=== PATIENT | male | born 1955 | race Caucasian/White ===

== ENCOUNTER 2018-08-31 09:03 | Inpatient (IN) ==
[2018-08-31] MEDS ORDERED: ENOXAPARIN 100 MG/ML SYRINGE SUBCUT STA (09:52)
[2018-08-31] MEDS ORDERED: DILTIAZEM 50 MG/10 ML VIAL IV STA (09:52)
[2018-08-31] MEDS ORDERED: DILTIAZEM 25 MG/5 ML VIAL IV ONE (09:54)
[2018-08-31 10:01] LABS: Basophils # 0.1 10*3/uL (0.0-0.2); Basophils % 0.5 % (0.0-0.8); Eosinophils # 0.2 10*3/uL (0.0-0.87); Eosinophils % 1.8 % (0.00-10.9); Hematocrit 52.2 VOL% (42.0-52.0); Hemoglobin 16.1 GM/DL (14.0-18.0); Immature Granulocytes % 0.5 %; Immature Granulocytes Absolute 0.05 #; Lymphocytes # 1.6 10*3/uL (1.4-4.0); Lymphocytes % 14.8 % (21.2-54.2); Mean Corpuscular HGB Conc 30.8 GM/DL (32-36); Mean Corpuscular Hemoglobin 26 PG (27-34); Mean Corpuscular Volume 84.6 FL (87-102); Mean Platelet Volume 10.8 FL (9.6-12.0); Monocytes # 0.6 10*3/uL (0.11-0.8); Monocytes % 5.7 % (1.7-12.7); Neutrophils # 8.5 10*3/uL (1.4-7.4); Neutrophils % 76.7 % (38.7-73.9); Platelet Count 193 T/CUMM (130-400); Red Blood Count 6.17 MC/CUMM (3.8-5.5); Red Cell Distribution Width 18.2 % (9.3-17.3)
[2018-08-31] MEDS: dilTIAZem Drip 125 MG/125 ML PREMIX IV SCH (10:06)
[2018-08-31 10:13] LABS: Albumin 3.2 G/DL (3.4-5.0); Bilirubin,Total 0.4 MG/DL (0.2-1.0); Calcium 8.6 MG/DL (8.5-10.1); Osmolality,Calculated 288.4 MOS/KG (273-304); Potassium 4.6 MMOL/L (3.5-5.1); Total Protein 7.7 G/DL (6.4-8.3)
[2018-08-31] MEDS ORDERED: FUROSEMIDE 40 MG/4 ML VIAL IV STA (10:25)
[2018-08-31 10:52] LABS: Platelet Estimate Normal
[2018-08-31] MEDS ORDERED: MAGNESIUM SULF RIDER 4 GM in PREMIX 1 EACH IV PRN (11:00)
[2018-08-31] MEDS ORDERED: MAGNESIUM SULF RIDER 2 GM in PREMIX 1 EACH IV PRN (11:00)
[2018-08-31] MEDS ORDERED: POTASSIUM CHLORIDE RIDER 10 MEQ in PREMIX 1 EACH IV PRN (11:00)
[2018-08-31] MEDS ORDERED: ALBUTEROL 2.5 MG/3 ML NEB RESP TX PRN (11:07)
[2018-08-31] MEDS ORDERED: traZODone 50 MG TABLET PO PRN (11:08)
[2018-08-31] MEDS ORDERED: diphenhydrAMINE CAP 25 MG CAPSULE PO PRN (11:08)
[2018-08-31] MEDS ORDERED: guaiFENesin/DM ER 600-30 MG TABLET PO PRN (11:08)
[2018-08-31] MEDS ORDERED: ACETAMINOPHEN 325 MG TABLET PO PRN (11:08)
[2018-08-31] MEDS ORDERED: MORPHINE 4 MG/1 ML VIAL IV PRN (11:08)
[2018-08-31 11:33] LABS: Risk Ratio 6.44; Thyroid Stimulating Hormone 9.21 uIU/ml (0.358-3.74); VLDL CHOLESTEROL 31.8 MG/DL
[2018-08-31] MEDS ORDERED: DEXTROSE 50% 25 GM/50 ML SYRINGE IV PRN (12:33)
[2018-08-31] MEDS ORDERED: GLUCAGON 1 MG VIAL IM PRN (12:33)
[2018-08-31] MEDS: ALBUTEROL/IPRATROPIUM 3 ML NEB RESP TX SCH ×2 (14:26→19:13)
[2018-08-31 14:50] LABS: Apearance,Urine CLEAR (Clear); Bilirubin,Urine Negative (Negative); Blood, Urine Small mg/dL (Negative); Glucose,Urine (UA) Negative (Negative); Ketones,Urine Negative (Negative); Mucus,Urine Occasional /LPF (Occasional); Nitrite,Urine Negative (Negative); Protein,Urine 30 MG/DL; RBC,Urine 1 /HPF (0-4); Urine Color Colorless (Yellow); Urine Specific Gravity 1.005 (1.001-1.035); Urine Urobilinogen < 2.0 EU/DL (0.2-1.0)
[2018-08-31 14:57] LABS: Barbiturates Screen,Urine Negative (Negative); Benzodiazepines Screen,Urine Negative (Negative); Cannabinoid Screen,Urine Negative (Negative); Opiate Screen,Urine Negative (Negative); Phencyclidine Screen,Urine Negative (Negative)
[2018-08-31] MEDS ORDERED: hydrALAZINE 10 MG TABLET PO SCH (15:00)
[2018-08-31] MEDS ORDERED: methylPREDNISolone SOD SUC 40 MG/1 ML VIAL IV SCH (16:00)
[2018-08-31] MEDS ORDERED: FUROSEMIDE 40 MG/4 ML VIAL IV SCH (16:00)
[2018-08-31] MEDS: hydrALAZINE 25 MG TABLET PO SCH ×2 (17:13→22:01)
[2018-08-31] MEDS ORDERED: METOPROLOL TARTRATE 5 MG/5 ML VIAL IV ONE (17:17)
[2018-08-31] MEDS: INSULIN REGULAR 100 UNIT/ML SUBCUT SCH ×2 (17:45→22:04)
[2018-08-31] MEDS: methylPREDNISolone SOD SUC 40 MG/1 ML VIAL IV SCH (17:46)
[2018-08-31] MEDS ORDERED: CARVEDILOL 12.5 MG TABLET PO SCH (21:00)
[2018-08-31] MEDS: FLUTICASONE/SALMETEROL 250-50 DISKUS 14 DOSE INH SCH (21:55)
[2018-08-31] MEDS: SOTALOL 80 MG TABLET PO SCH (21:56)
[2018-08-31] MEDS: ATORVASTATIN 80 MG TABLET PO SCH (21:57)
[2018-08-31] MEDS: APIXABAN 5 MG TABLET PO SCH (21:57)
[2018-08-31] MEDS: DOCUSATE SODIUM 100 MG CAPSULE PO SCH (22:01)
[2018-09-01] MEDS: ALBUTEROL/IPRATROPIUM 3 ML NEB RESP TX SCH ×4 (00:01→13:20)
[2018-09-01 04:25] LABS: Basophils % 0.2 % (0.0-0.8); Eosinophils % 0.1 % (0.00-10.9); Hemoglobin 14.9 GM/DL (14.0-18.0); Immature Granulocytes % 0.7 %; Immature Granulocytes Absolute 0.07 #; Lymphocytes # 0.8 10*3/uL (1.4-4.0); Lymphocytes % 7.9 % (21.2-54.2); Mean Corpuscular HGB Conc 31.7 GM/DL (32-36); Mean Corpuscular Hemoglobin 26 PG (27-34); Mean Corpuscular Volume 82.7 FL (87-102); Monocytes # 0.2 10*3/uL (0.11-0.8); Monocytes % 2.3 % (1.7-12.7); Neutrophils # 9.2 10*3/uL (1.4-7.4); Neutrophils % 88.8 % (38.7-73.9); Platelet Count 216 T/CUMM (130-400); Red Blood Count 5.68 MC/CUMM (3.8-5.5); Red Cell Distribution Width 17.2 % (9.3-17.3); White Blood Count 10.4 T/CUMM (4-12)
[2018-09-01 04:55] LABS: Bilirubin,Total 0.8 MG/DL (0.2-1.0); Calcium 7.9 MG/DL (8.5-10.1); Osmolality,Calculated 295.7 MOS/KG (273-304); Potassium 4.7 MMOL/L (3.5-5.1); Total Protein 7.5 G/DL (6.4-8.3)
[2018-09-01] MEDS: methylPREDNISolone SOD SUC 40 MG/1 ML VIAL IV SCH ×2 (06:15→17:09)
[2018-09-01] MEDS: THYROID 60 MG TABLET PO SCH (06:45)
[2018-09-01] MEDS ORDERED: LOSARTAN 25 MG TABLET PO SCH (09:00)
[2018-09-01] MEDS ORDERED: LISINOPRIL 2.5 MG TABLET PO SCH (09:00)
[2018-09-01] MEDS: CARVEDILOL 25 MG TABLET PO SCH ×2 (09:07→21:18)
[2018-09-01] MEDS: PANTOPRAZOLE 40 MG TABLET PO SCH (09:07)
[2018-09-01] MEDS: DOCUSATE SODIUM 100 MG CAPSULE PO SCH ×2 (09:07→21:21)
[2018-09-01] MEDS: INSULIN REGULAR 100 UNIT/ML SUBCUT SCH ×4 (09:07→21:27)
[2018-09-01] MEDS: hydrALAZINE 25 MG TABLET PO SCH ×3 (09:07→23:34)
[2018-09-01] MEDS: SOTALOL 80 MG TABLET PO SCH ×2 (09:07→21:26)
[2018-09-01] MEDS: APIXABAN 5 MG TABLET PO SCH ×2 (09:07→21:21)
[2018-09-01] MEDS: dilTIAZem Drip 125 MG/125 ML PREMIX IV SCH (11:20)
[2018-09-01] MEDS: FLUTICASONE/SALMETEROL 250-50 DISKUS 14 DOSE INH SCH ×2 (12:54→23:35)
[2018-09-01] MEDS ORDERED: ONDANSETRON 4 MG/2 ML VIAL IV PRN (13:38)
[2018-09-01] MEDS ORDERED: ALUMINUM/MAGNES/SIMETH MAX STR 30 ML UDCUP PO PRN (13:38)
[2018-09-01] MEDS ORDERED: SODIUM CHLORIDE 0.9% 500 ML IV ONE (15:56)
[2018-09-01] MEDS: SODIUM CHLORIDE 0.9% 1,000 ML IV SCH (16:25)
[2018-09-01] MEDS ORDERED: SODIUM CHLORIDE 0.9% 1,000 ML IV ONE (17:46)
[2018-09-01 18:59] LABS: ABG Base Excess -0.3 MMOL/L (-2.5-2.5); ABG Oxygen Saturation 90.3 % (95-100); ABG PCO2 40.4 MM HG (35-48); ABG PH 7.392 (7.35-7.45); ABG PO2 60.3 MM HG (80-95); ABG TCO2 21.1 MMOL/L (23-27); Allen Test Positive
[2018-09-01 19:22] LABS: Basophils % 0.2 % (0.0-0.8); Hematocrit 45.2 VOL% (42.0-52.0); Hemoglobin 14.2 GM/DL (14.0-18.0); Immature Granulocytes % 0.6 %; Lymphocytes % 5.7 % (21.2-54.2); Mean Corpuscular HGB Conc 31.4 GM/DL (32-36); Mean Corpuscular Hemoglobin 26 PG (27-34); Mean Corpuscular Volume 83.4 FL (87-102); Mean Platelet Volume 10.4 FL (9.6-12.0); Monocytes # 0.4 10*3/uL (0.11-0.8); Monocytes % 2.6 % (1.7-12.7); Neutrophils # 15.1 10*3/uL (1.4-7.4); Neutrophils % 90.9 % (38.7-73.9); Platelet Count 220 T/CUMM (130-400); Red Blood Count 5.42 MC/CUMM (3.8-5.5); White Blood Count 16.6 T/CUMM (4-12)
[2018-09-01 19:45] LABS: Band Neutrophils 1 % (0-10); Lymphocytes 12 % (20-55); Segmented Neutrophils 86 % (50-85); Total Cells Counted 100
[2018-09-01 19:47] LABS: Alanine Aminotransferase 44 U/L (16-61); Albumin 2.9 G/DL (3.4-5.0); Alkaline Phosphatase 62 U/L (45-117); Aspartate Amino Transferase 21 U/L (0-37); Blood Urea Nitrogen 64 MG/DL (7-18); Calcium 7.7 MG/DL (8.5-10.1); Glucose 280 MG/DL (74-106); Potassium 4.9 MMOL/L (3.5-5.1); Sodium 136 MMOL/L (136-145); Troponin I 0.021 NG/ML (0.00-0.045)
[2018-09-01 19:50] LABS: Platelet Estimate Normal; Polychromasia Few
[2018-09-01] MEDS ORDERED: LORazepam 1 MG TABLET PO ONE (21:09)
[2018-09-01] MEDS: OMEGA 3 ACID ETHYL ESTERS 1 GM CAPSULE PO SCH (21:21)
[2018-09-01] MEDS: ATORVASTATIN 80 MG TABLET PO SCH (21:28)
[2018-09-01 22:16] LABS: ABG Base Excess -1.3 MMOL/L (-2.5-2.5); ABG HCO3 23.3 MMOL/L (20-26); ABG Oxygen Saturation 98.8 % (95-100); ABG PCO2 37.2 MM HG (35-48); ABG TCO2 19.6 MMOL/L (23-27); Allen Test Positive; Pt O2 Delivery Device Other
[2018-09-02] MEDS: ALBUTEROL/IPRATROPIUM 3 ML NEB RESP TX SCH ×4 (01:12→19:08)
[2018-09-02 04:46] LABS: Basophils % 0.1 % (0.0-0.8); Hematocrit 43.1 VOL% (42.0-52.0); Hemoglobin 13.6 GM/DL (14.0-18.0); Immature Granulocytes % 0.9 %; Immature Granulocytes Absolute 0.18 #; Lymphocytes # 0.9 10*3/uL (1.4-4.0); Lymphocytes % 4.8 % (21.2-54.2); Mean Corpuscular HGB Conc 31.6 GM/DL (32-36); Mean Corpuscular Hemoglobin 26 PG (27-34); Mean Corpuscular Volume 83.5 FL (87-102); Mean Platelet Volume 11.4 FL (9.6-12.0); Monocytes % 5.1 % (1.7-12.7); Neutrophils # 17.2 10*3/uL (1.4-7.4); Neutrophils % 89.1 % (38.7-73.9); Platelet Count 219 T/CUMM (130-400); Red Blood Count 5.16 MC/CUMM (3.8-5.5); Red Cell Distribution Width 16.9 % (9.3-17.3); White Blood Count 19.3 T/CUMM (4-12)
[2018-09-02 04:57] LABS: Albumin 2.7 G/DL (3.4-5.0); Bilirubin,Total 0.6 MG/DL (0.2-1.0); Calcium 8.1 MG/DL (8.5-10.1); Osmolality,Calculated 300.8 MOS/KG (273-304); Potassium 4.6 MMOL/L (3.5-5.1); Total Protein 6.6 G/DL (6.4-8.3)
[2018-09-02] MEDS: hydrALAZINE 25 MG TABLET PO SCH (05:08)
[2018-09-02] MEDS: methylPREDNISolone SOD SUC 40 MG/1 ML VIAL IV SCH ×2 (05:19→16:46)
[2018-09-02 05:35] LABS: Lymphocytes 2 % (20-55); Platelet Estimate Normal; Segmented Neutrophils 96 % (50-85); Total Cells Counted 100
[2018-09-02] MEDS: cefTRIAXone 1,000 MG in SYRINGE 1 EACH IV SCH (08:19)
[2018-09-02] MEDS: INSULIN REGULAR 100 UNIT/ML SUBCUT SCH ×4 (08:19→21:11)
[2018-09-02] MEDS: APIXABAN 5 MG TABLET PO SCH ×2 (08:20→21:11)
[2018-09-02] MEDS: PANTOPRAZOLE 40 MG TABLET PO SCH (08:20)
[2018-09-02] MEDS: SOTALOL 80 MG TABLET PO SCH (08:20)
[2018-09-02] MEDS: THYROID 60 MG TABLET PO SCH (08:20)
[2018-09-02] MEDS: DOCUSATE SODIUM 100 MG CAPSULE PO SCH ×2 (08:20→21:15)
[2018-09-02] MEDS: CARVEDILOL 25 MG TABLET PO SCH ×2 (08:20→21:11)
[2018-09-02] MEDS: FLUTICASONE/SALMETEROL 250-50 DISKUS 14 DOSE INH SCH ×2 (08:29→22:30)
[2018-09-02] MEDS: SODIUM CHLORIDE 0.9% 1,000 ML IV SCH (11:31)
[2018-09-02] MEDS ORDERED: APIXABAN 5 MG TABLET PO SCH (11:49)
[2018-09-02] MEDS: OMEGA 3 ACID ETHYL ESTERS 1 GM CAPSULE PO SCH (21:10)
[2018-09-02] MEDS: ATORVASTATIN 80 MG TABLET PO SCH (21:11)
[2018-09-03] MEDS: SODIUM CHLORIDE 0.9% 1,000 ML IV SCH ×2 (00:43→15:11)
[2018-09-03] MEDS: ALBUTEROL/IPRATROPIUM 3 ML NEB RESP TX SCH ×4 (00:54→19:15)
[2018-09-03 05:54] LABS: Basophils % 0.1 % (0.0-0.8); Hematocrit 45.2 VOL% (42.0-52.0); Hemoglobin 14.3 GM/DL (14.0-18.0); Immature Granulocytes % 0.9 %; Immature Granulocytes Absolute 0.15 #; Lymphocytes # 0.8 10*3/uL (1.4-4.0); Lymphocytes % 4.6 % (21.2-54.2); Mean Corpuscular HGB Conc 31.6 GM/DL (32-36); Mean Corpuscular Hemoglobin 27 PG (27-34); Mean Corpuscular Volume 83.9 FL (87-102); Mean Platelet Volume 12.1 FL (9.6-12.0); Monocytes % 5.9 % (1.7-12.7); Neutrophils # 14.5 10*3/uL (1.4-7.4); Neutrophils % 88.5 % (38.7-73.9); Platelet Count 241 T/CUMM (130-400); Red Blood Count 5.39 MC/CUMM (3.8-5.5); Red Cell Distribution Width 17.7 % (9.3-17.3); White Blood Count 16.4 T/CUMM (4-12)
[2018-09-03] MEDS: THYROID 60 MG TABLET PO SCH (06:06)
[2018-09-03] MEDS: methylPREDNISolone SOD SUC 40 MG/1 ML VIAL IV SCH ×2 (06:06→17:26)
[2018-09-03 06:11] LABS: Calcium 7.9 MG/DL (8.5-10.1); Osmolality,Calculated 298.4 MOS/KG (273-304); Potassium 4.6 MMOL/L (3.5-5.1)
[2018-09-03 06:44] LABS: Band Neutrophils 1 % (0-10); Lymphocytes 5 % (20-55); Platelet Estimate Normal; Segmented Neutrophils 88 % (50-85); Total Cells Counted 100
[2018-09-03] MEDS: CARVEDILOL 25 MG TABLET PO SCH ×2 (08:48→21:01)
[2018-09-03] MEDS: PANTOPRAZOLE 40 MG TABLET PO SCH (08:48)
[2018-09-03] MEDS: APIXABAN 5 MG TABLET PO SCH ×2 (08:48→21:02)
[2018-09-03] MEDS: INSULIN REGULAR 100 UNIT/ML SUBCUT SCH ×4 (08:49→21:03)
[2018-09-03] MEDS: DOCUSATE SODIUM 100 MG CAPSULE PO SCH ×2 (08:50→21:01)
[2018-09-03] MEDS: cefTRIAXone 1,000 MG in SYRINGE 1 EACH IV SCH (08:50)
[2018-09-03] MEDS: FLUTICASONE/SALMETEROL 250-50 DISKUS 14 DOSE INH SCH ×2 (09:29→21:06)
[2018-09-03] MEDS: OMEGA 3 ACID ETHYL ESTERS 1 GM CAPSULE PO SCH (21:02)
[2018-09-03] MEDS: ATORVASTATIN 80 MG TABLET PO SCH (21:02)
[2018-09-04] MEDS: ALBUTEROL/IPRATROPIUM 3 ML NEB RESP TX SCH ×5 (00:36→19:19)
[2018-09-04] MEDS: SODIUM CHLORIDE 0.9% 1,000 ML IV SCH ×2 (04:00→16:21)
[2018-09-04 04:38] LABS: Basophils % 0.1 % (0.0-0.8); Hematocrit 50.2 VOL% (42.0-52.0); Hemoglobin 14.9 GM/DL (14.0-18.0); Immature Granulocytes % 0.9 %; Immature Granulocytes Absolute 0.11 #; Lymphocytes # 0.6 10*3/uL (1.4-4.0); Lymphocytes % 4.9 % (21.2-54.2); Mean Corpuscular HGB Conc 29.7 GM/DL (32-36); Mean Corpuscular Hemoglobin 27 PG (27-34); Mean Corpuscular Volume 90.1 FL (87-102); Mean Platelet Volume 11.7 FL (9.6-12.0); Monocytes # 0.7 10*3/uL (0.11-0.8); Neutrophils # 10.8 10*3/uL (1.4-7.4); Neutrophils % 88.1 % (38.7-73.9); Platelet Count 193 T/CUMM (130-400); Red Blood Count 5.57 MC/CUMM (3.8-5.5); Red Cell Distribution Width 18.4 % (9.3-17.3); White Blood Count 12.3 T/CUMM (4-12)
[2018-09-04 04:51] LABS: Calcium 7.7 MG/DL (8.5-10.1); Osmolality,Calculated 300.1 MOS/KG (273-304); Potassium 4.8 MMOL/L (3.5-5.1)
[2018-09-04 05:14] LABS: Lymphocytes 6 % (20-55); Segmented Neutrophils 86 % (50-85)
[2018-09-04 05:17] LABS: Platelet Estimate Normal; Total Cells Counted 100
[2018-09-04] MEDS: methylPREDNISolone SOD SUC 40 MG/1 ML VIAL IV SCH (05:44)
[2018-09-04] MEDS: THYROID 60 MG TABLET PO SCH (06:59)
[2018-09-04] MEDS: INSULIN REGULAR 100 UNIT/ML SUBCUT SCH ×4 (08:16→21:37)
[2018-09-04] MEDS: cefTRIAXone 1,000 MG in SYRINGE 1 EACH IV SCH (08:18)
[2018-09-04] MEDS: CARVEDILOL 25 MG TABLET PO SCH ×2 (08:22→21:37)
[2018-09-04] MEDS: PANTOPRAZOLE 40 MG TABLET PO SCH (08:22)
[2018-09-04] MEDS: DOCUSATE SODIUM 100 MG CAPSULE PO SCH ×2 (08:22→21:36)
[2018-09-04] MEDS: APIXABAN 5 MG TABLET PO SCH ×2 (08:22→21:37)
[2018-09-04] MEDS: FLUTICASONE/SALMETEROL 250-50 DISKUS 14 DOSE INH SCH ×2 (08:39→21:36)
[2018-09-04] MEDS: OMEGA 3 ACID ETHYL ESTERS 1 GM CAPSULE PO SCH (21:38)
[2018-09-04] MEDS: ATORVASTATIN 80 MG TABLET PO SCH (21:38)
[2018-09-05] MEDS: ALBUTEROL/IPRATROPIUM 3 ML NEB RESP TX SCH ×3 (00:33→14:03)
[2018-09-05 05:43] LABS: Basophils % 0.2 % (0.0-0.8); Eosinophils % 0.2 % (0.00-10.9); Hematocrit 46.5 VOL% (42.0-52.0); Hemoglobin 14.5 GM/DL (14.0-18.0); Immature Granulocytes % 1.2 %; Immature Granulocytes Absolute 0.16 #; Lymphocytes # 1.8 10*3/uL (1.4-4.0); Lymphocytes % 13.7 % (21.2-54.2); Mean Corpuscular HGB Conc 31.2 GM/DL (32-36); Mean Corpuscular Hemoglobin 26 PG (27-34); Mean Corpuscular Volume 84.1 FL (87-102); Mean Platelet Volume 11.2 FL (9.6-12.0); Monocytes % 7.9 % (1.7-12.7); Neutrophils # 9.9 10*3/uL (1.4-7.4); Neutrophils % 76.8 % (38.7-73.9); Platelet Count 221 T/CUMM (130-400); Red Blood Count 5.53 MC/CUMM (3.8-5.5); Red Cell Distribution Width 17.7 % (9.3-17.3); White Blood Count 12.9 T/CUMM (4-12)
[2018-09-05 05:44] LABS: Calcium 7.8 MG/DL (8.5-10.1); Osmolality,Calculated 300.8 MOS/KG (273-304); Potassium 4.3 MMOL/L (3.5-5.1)
[2018-09-05] MEDS: SODIUM CHLORIDE 0.9% 1,000 ML IV SCH (06:40)
[2018-09-05] MEDS: THYROID 60 MG TABLET PO SCH (06:40)
[2018-09-05] MEDS ORDERED: hydrALAZINE 20 MG/1 ML VIAL IV ONE (08:04)
[2018-09-05] MEDS: cefTRIAXone 1,000 MG in SYRINGE 1 EACH IV SCH (08:12)
[2018-09-05] MEDS: APIXABAN 5 MG TABLET PO SCH (08:34)
[2018-09-05] MEDS: CARVEDILOL 25 MG TABLET PO SCH (08:34)
[2018-09-05] MEDS: PANTOPRAZOLE 40 MG TABLET PO SCH (08:35)
[2018-09-05] MEDS: DOCUSATE SODIUM 100 MG CAPSULE PO SCH (08:35)
[2018-09-05] MEDS: INSULIN REGULAR 100 UNIT/ML SUBCUT SCH ×3 (08:39→17:22)
[2018-09-05] MEDS: FLUTICASONE/SALMETEROL 250-50 DISKUS 14 DOSE INH SCH (08:45)
[2018-09-05] MEDS ORDERED: predniSONE 20 MG TABLET PO SCH (09:00)
[2018-09-05] MEDS ORDERED: SOTALOL 80 MG TABLET PO SCH (09:00)
[2018-09-05] MEDS ORDERED: HydrOXYzine PAMOATE 25 MG CAPSULE PO PRN (11:07)
[2018-09-05] MEDS ORDERED: LORazepam 2 MG/1 ML VIAL IV ONE (16:51)
[2018-09-05 18:43] VITALS: BP 145/90
== END 2018-09-05 18:28 | disposition home or self-care (01) | DRG 291 ==
LOC: N.ED 09:03 → N.EDINP 09:03 → N.TELES 16:17 → SUATTDRO 09-01 11:34 → N.ICU 09-01 19:26 → N.TELEN 09-03 12:49
PROVIDERS: ADMIT Internal Medicine; ATTEND Internal Medicine Geriatric Medicine

== ENCOUNTER 2020-06-22 20:29 | Inpatient (IN) ==
[2020-06-22] MEDS ORDERED: DILTIAZEM 50 MG/10 ML VIAL IV STA ×2 (20:43→21:46)
[2020-06-22 21:08] LABS: Partial Thromboplastin Time 33.9 SECS (23.9-33.8)
[2020-06-22 21:13] LABS: Basophils # 0.1 10*3/uL (0.0-0.2); Basophils % 0.6 % (0.0-0.8); Eosinophils # 0.2 10*3/uL (0.0-0.87); Eosinophils % 2.4 % (0.00-10.9); Hematocrit 44.5 VOL% (42.0-52.0); Hemoglobin 14.1 GM/DL (14.0-18.0); Immature Granulocytes % 0.3 %; Immature Granulocytes Absolute 0.03 #; Lymphocytes # 1.3 10*3/uL (1.4-4.0); Lymphocytes % 13.4 % (21.2-54.2); Mean Corpuscular HGB Conc 31.7 GM/DL (32-36); Mean Corpuscular Volume 84.6 FL (87-102); Mean Platelet Volume 10.7 FL (9.6-12.0); Monocytes % 8.4 % (1.7-12.7); Neutrophils % 74.9 % (38.7-73.9); Platelet Count 227 T/CUMM (130-400); Red Blood Count 5.26 MC/CUMM (3.8-5.5); Red Cell Distribution Width 17.5 % (9.3-17.3)
[2020-06-22 21:15] LABS: Alanine Aminotransferase 21 U/L (16-61); Alkaline Phosphatase 72 U/L (45-117); Aspartate Amino Transferase 11 U/L (0-37); Bilirubin,Total < 0.39 MG/DL (0.2-1.0); Blood Urea Nitrogen 18 MG/DL (7-18); Calcium 8.5 MG/DL (8.5-10.1); Carbon Dioxide 25 MMOL/L (21-32); Estimated Glom Filtration Rate 65 ML/MIN; Glucose 341 MG/DL (74-106); Potassium 4.2 MMOL/L (3.5-5.1); Sodium 136 MMOL/L (136-145); Total Protein 8.2 G/DL (6.4-8.3)
[2020-06-22] MEDS ORDERED: ONDANSETRON 4 MG/2 ML VIAL IV STA (21:46)
[2020-06-22] MEDS ORDERED: SODIUM CHLORIDE 0.9% 1,000 ML IV STA (22:46)
[2020-06-22] MEDS ORDERED: oxyCODONE/ACETAMINOPHEN 5-325 MG TABLET PO PRN (23:14)
[2020-06-22] MEDS ORDERED: ACETAMINOPHEN 325 MG TABLET PO PRN (23:17)
[2020-06-22] MEDS ORDERED: NICOTINE 21 MG/24 HR PATCH TRANSDERM PRN (23:17)
[2020-06-22] MEDS ORDERED: guaiFENesin/DM ER 600-30 MG TABLET PO PRN (23:17)
[2020-06-22] MEDS ORDERED: MORPHINE 4 MG/1 ML VIAL IV PRN (23:17)
[2020-06-22] MEDS ORDERED: DEXTROSE 50% 25 GM/50 ML VIAL IV PRN ×2 (23:17)
[2020-06-22] MEDS ORDERED: ZALEPLON 5 MG CAPSULE PO PRN (23:17)
[2020-06-22] MEDS ORDERED: hydrALAZINE 20 MG/1 ML VIAL IV PRN (23:17)
[2020-06-22] MEDS ORDERED: ALUMINUM/MAGNES/SIMETH MAX STR 30 ML UDCUP PO PRN (23:17)
[2020-06-22] MEDS ORDERED: diphenhydrAMINE CAP 25 MG CAPSULE PO PRN (23:17)
[2020-06-22] MEDS ORDERED: ONDANSETRON 4 MG/2 ML VIAL IV PRN (23:17)
[2020-06-22] MEDS ORDERED: GLUCAGON 1 MG VIAL IM PRN ×2 (23:17)
[2020-06-23] MEDS: ENOXAPARIN 100 MG/ML SYRINGE SUBCUT SCH (00:49)
[2020-06-23] MEDS: ALBUTEROL/IPRATROPIUM 3 ML NEB RESP TX SCH ×4 (02:03→19:53)
[2020-06-23] MEDS ORDERED: METOPROLOL TARTRATE 5 MG/5 ML VIAL IV STA (03:11)
[2020-06-23 03:34] LABS: Basophils % 0.4 % (0.0-0.8); Eosinophils # 0.2 10*3/uL (0.0-0.87); Eosinophils % 2.5 % (0.00-10.9); Hematocrit 42.6 VOL% (42.0-52.0); Immature Granulocytes % 0.7 %; Immature Granulocytes Absolute 0.07 #; Lymphocytes # 2.2 10*3/uL (1.4-4.0); Lymphocytes % 22.8 % (21.2-54.2); Mean Corpuscular HGB Conc 29.8 GM/DL (32-36); Monocytes % 9.7 % (1.7-12.7); Neutrophils % 63.9 % (38.7-73.9); Platelet Count 224 T/CUMM (130-400); Red Blood Count 4.84 MC/CUMM (3.8-5.5); Red Cell Distribution Width 17.5 % (9.3-17.3); White Blood Count 9.5 T/CUMM (4-12)
[2020-06-23 03:35] LABS: Hemoglobin 12.7 GM/DL (14.0-18.0)
[2020-06-23 03:47] LABS: Calcium 7.7 MG/DL (8.5-10.1); Osmolality,Calculated 287.1 MOS/KG (273-304); Potassium 3.9 MMOL/L (3.5-5.1)
[2020-06-23 03:56] LABS: Atypical Lymphocytes Few; Band Neutrophils 1 % (0-10); Eosinophils 5 % (0-10); Lymphocytes 25 % (20-55); Metamyelocytes 1 %; Myelocytes 1 %; Segmented Neutrophils 64 % (50-85); Total Cells Counted 100
[2020-06-23 03:57] LABS: Hypochromasia 1+; Microcytosis 1+
[2020-06-23 03:58] LABS: Platelet Estimate Normal
[2020-06-23 05:25] LABS: Free T4 (Free Thyroxine) 0.78 NG/DL (0.76-1.46); Thyroid Stimulating Hormone 7.73 uIU/ml (0.358-3.74)
[2020-06-23] MEDS: INSULIN LISPRO 100 UNIT/ML SUBCUT SCH ×4 (08:37→21:42)
[2020-06-23] MEDS: PANTOPRAZOLE 40 MG TABLET PO SCH (08:57)
[2020-06-23] MEDS ORDERED: SOTALOL 120 MG PO SCH (09:00)
[2020-06-23] MEDS ORDERED: DILTIAZEM 50 MG/10 ML VIAL IV ONE (10:28)
[2020-06-23] MEDS ORDERED: DILTIAZEM 25 MG/5 ML VIAL IV ONE (10:29)
[2020-06-23] MEDS: LEVOTHYROXINE 100 MCG TABLET PO SCH (16:52)
[2020-06-23] MEDS: DOXAZOSIN 1 MG TABLET PO SCH ×2 (16:52→21:40)
[2020-06-23] MEDS: DILTIAZEM 60 MG TABLET PO SCH ×3 (16:54→21:41)
[2020-06-23 17:16] LABS: Troponin I 0.044 NG/ML (0.00-0.045)
[2020-06-23] MEDS: SOTALOL 80 MG TABLET PO SCH (21:41)
[2020-06-23] MEDS: APIXABAN 5 MG TABLET PO SCH (21:41)
[2020-06-23] MEDS: INSULIN GLARGINE 100 UNIT/ML SUBCUT SCH (21:41)
[2020-06-24] MEDS: ALBUTEROL/IPRATROPIUM 3 ML NEB RESP TX SCH ×4 (02:31→21:13)
[2020-06-24 05:09] LABS: Calcium 8.1 MG/DL (8.5-10.1); Potassium 4.7 MMOL/L (3.5-5.1)
[2020-06-24 07:18] LABS: Basophils # 0.1 10*3/uL (0.0-0.2); Basophils % 0.6 % (0.0-0.8); Eosinophils # 0.2 10*3/uL (0.0-0.87); Eosinophils % 2.9 % (0.00-10.9); Hematocrit 41.6 VOL% (42.0-52.0); Hemoglobin 12.4 GM/DL (14.0-18.0); Immature Granulocytes % 0.8 %; Immature Granulocytes Absolute 0.06 #; Lymphocytes # 1.3 10*3/uL (1.4-4.0); Lymphocytes % 16.5 % (21.2-54.2); Mean Corpuscular HGB Conc 29.8 GM/DL (32-36); Mean Corpuscular Volume 88.3 FL (87-102); Mean Platelet Volume 10.5 FL (9.6-12.0); Monocytes % 7.3 % (1.7-12.7); Neutrophils % 71.9 % (38.7-73.9); Platelet Count 224 T/CUMM (130-400); Red Blood Count 4.71 MC/CUMM (3.8-5.5); Red Cell Distribution Width 17.7 % (9.3-17.3); White Blood Count 7.9 T/CUMM (4-12)
[2020-06-24] MEDS: ENOXAPARIN 100 MG/ML SYRINGE SUBCUT SCH (07:25)
[2020-06-24 07:29] LABS: Hypochromasia 1+; Microcytosis 1+; Platelet Estimate Adequate
[2020-06-24] MEDS: INSULIN LISPRO 100 UNIT/ML SUBCUT SCH ×4 (08:08→20:07)
[2020-06-24] MEDS: SOTALOL 80 MG TABLET PO SCH ×2 (09:32→20:31)
[2020-06-24] MEDS: APIXABAN 5 MG TABLET PO SCH ×2 (09:33→20:32)
[2020-06-24] MEDS: DILTIAZEM 60 MG TABLET PO SCH ×3 (09:33→20:32)
[2020-06-24] MEDS: lisinopriL 20 MG TABLET PO SCH (09:33)
[2020-06-24] MEDS: LEVOTHYROXINE 100 MCG TABLET PO SCH (09:33)
[2020-06-24] MEDS: PANTOPRAZOLE 40 MG TABLET PO SCH (09:33)
[2020-06-24] MEDS: DOXAZOSIN 1 MG TABLET PO SCH ×2 (09:33→20:33)
[2020-06-24] MEDS: INSULIN GLARGINE 100 UNIT/ML SUBCUT SCH (20:31)
[2020-06-25] MEDS: ALBUTEROL/IPRATROPIUM 3 ML NEB RESP TX SCH ×2 (00:40→07:38)
[2020-06-25] MEDS ORDERED: MIDAZOLAM 2 MG/2 ML VIAL IV ONE (07:00)
[2020-06-25] MEDS: INSULIN LISPRO 100 UNIT/ML SUBCUT SCH ×2 (08:31→12:32)
[2020-06-25] MEDS: PANTOPRAZOLE 40 MG TABLET PO SCH (08:32)
[2020-06-25] MEDS: SOTALOL 80 MG TABLET PO SCH (08:32)
[2020-06-25] MEDS: APIXABAN 5 MG TABLET PO SCH (08:32)
[2020-06-25] MEDS: lisinopriL 20 MG TABLET PO SCH (08:32)
[2020-06-25] MEDS: DOXAZOSIN 1 MG TABLET PO SCH (08:32)
[2020-06-25] MEDS: LEVOTHYROXINE 100 MCG TABLET PO SCH (08:33)
[2020-06-25] MEDS ORDERED: DILTIAZEM CD 120 MG CAPSULE PO SCH (09:00)
[2020-06-25] MEDS ORDERED: DILTIAZEM CD 180 MG CAPSULE PO SCH (09:00)
[2020-06-25 12:36] VITALS: BP 149/89
== END 2020-06-25 14:59 | disposition home or self-care (01) | DRG 309 ==
LOC: EDUNIT# → EDBD → N.EDINP 20:29 → N.ED 20:29 → SUATTDRO 23:17 → N.EDINP 06-23 14:39 → N.TELES 06-23 14:58 → SUATTDRO 06-24 12:26
PROVIDERS: ADMIT Emergency Medicine; ATTEND Family Medicine